=== PATIENT | female | born 1945 | race Caucasian/White ===

== ENCOUNTER 2019-01-11 17:32 | Inpatient (IN) | payer MEDICARE ==
[2019-01-11] MEDS ORDERED: Fentanyl 100 MCG/2 ML VIAL ONE (17:52)
[2019-01-11] MEDS ORDERED: Lorazepam 2 MG/ML VIAL ONE (17:56)
[2019-01-11] MEDS ORDERED: Ketorolac Tromethamine 30 MG/ML VIAL ONE (17:57)
[2019-01-11] MEDS ORDERED: Ondansetron PF 4 MG/2 ML Vial ONE (17:57)
--- NOTE | 2019-01-11 18:21 | RAD ---
EXAM: Single view of the chest HISTORY: Preoperative radiograph. Fall. COMPARISON: 12/03/2012 FINDINGS: Single view of the chest shows a normal sized cardiomediastinal silhouette. The patient is status post sternotomy. There is no evidence of consolidation, mass, or pleural effusion. The bones are unremarkable. IMPRESSION: No evidence of acute cardiopulmonary disease
--- NOTE | 2019-01-11 18:22 | RAD ---
EXAM: 2 views of the left hip HISTORY: Left hip pain after fall COMPARISON: None FINDINGS: 2 views of the left hip shows an intertrochanteric fracture of the left femur. No degenerat josemanuel changes are seen. Moderate soft tissue swelling is present. Vascular calcifications are seen. IMPRESSION: Intertrochanteric left femur fracture
--- NOTE | 2019-01-11 18:24 | RAD ---
Exam: Single view of the pelvis HISTORY: Pelvic and hip pain after fall COMPARISON: None FINDINGS: A single view the pelvis shows an intertrochanteric fracture of the left femur. No other fr actures or dislocations are seen. No degenerative changes seen in either hip. IMPRESSION: Intertrochanteric left femur fracture
[2019-01-11 18:25] LABS: #Eosinphils 0.1 thou/uL (0.0-0.7); #Lymphocytes 1.4 thou/uL (1.20-3.40); #Monocytes 0.6 thou/uL (0.11-0.59); #Neutrophils 7.4 thou/uL (1.40-6.50); %Basophils 0.4 % (0.0-1.0); %Eosinophils 1.5 % (0.0-10.0); %Lymphocytes 14.9 % (21.0-51.0); %Monocytes 5.9 % (0.0-10.0); %Neutrophils 77.3 % (42.0-75.0); Hemoglobin 11.5 g/dL (12.0-16.0); Mean Corpuscular HGB CONC 33.6 g/dL (32.0-36.0); Mean Corpuscular Hemoglobin 31.6 pg (27.0-31.0); Mean Corpuscular Volume 93.9 fL (78.0-98.0); Mean Platelet Volume 8.2 fL (7.4-10.4); Platelet Count 165 thou/uL (130-400); RBC Distribution Width 11.5 % (11.5-14.5); Red Blood Cell (RBC) Count 3.64 mill/uL (4.20-5.40); White Blood Cell (WBC) Count 9.6 thou/uL (4.8-10.8)
[2019-01-11 18:30] LABS: INR-International Normal Ratio 1.1; PTT 29.5 SEC (22.9-36.1); Prothrombin Time 14.4 SEC (12.0-14.7)
[2019-01-11 18:48] LABS: ALT (SGPT) 14 U/L (8-55); AST (SGOT) 15 U/L (5-34); Albumin 4.1 g/dL (3.4-4.8); Alkaline Phosphatase 70 U/L (40-150); Anion Gap 13 mmol/L (10-20); BUN (Urea Nitrogen) 30 mg/dL (9.8-20.1); Bilirubin, Total 0.5 mg/dL (0.2-1.2); CK (CPK) 117 U/L (29-168); Calc. Creatinine Clearance 0 mL/min (70-130); Calcium 8.6 mg/dL (7.8-10.44); Carbon Dioxide 22 mmol/L (23-31); Chloride 108 mmol/L (98-107); Estimated GFR-MDRD 33; Globulin 2.1 g/dL (2.4-3.5); Glucose 223 mg/dL (83-110); Potassium 4.2 mmol/L (3.5-5.1); Protein, Total 6.2 g/dL (6.0-8.3); Sodium 139 mmol/L (136-145)
[2019-01-11 19:02] LABS: Magnesium 1.8 mg/dL (1.6-2.6); Phosphorus 3.8 mg/dL (2.3-4.7)
[2019-01-11 19:38] LABS: Bilirubin Negative (Negative); Blood, Urine Negative (Negative); Clarity Clear (Clear); Glucose, Urine (Dipstick) 50 mg/dL (Negative); Leukocyte Negative Leu/uL (Negative); Nitrite Negative (Negative); Protein, Urine (Dipstick) 20 mg/dL (Neg-Trace); Urobilinogen Normal mg/dL (Less than 2)
[2019-01-11] MEDS ORDERED: Ondansetron PF 4 MG/2 ML Vial IVP PRN (20:46)
[2019-01-11] MEDS ORDERED: Insulin Regular 300 UNITS/3 ML VIAL SC PRN (20:46)
[2019-01-11] MEDS ORDERED: Ondansetron ODT 4 MG TAB PO PRN (20:46)
[2019-01-11] MEDS ORDERED: Dextrose 50% Abboject 50 ML SYRINGE SLOW IVP PRN (20:46)
[2019-01-11] MEDS ORDERED: Dextrose 5% in Water 1,000 ML IV PRN (20:46)
[2019-01-11] MEDS ORDERED: hydrALAZINE 20 MG/ML VIAL SLOW IVP PRN (20:56)
[2019-01-11] MEDS ORDERED: Cyclobenzaprine 10 MG TAB PO PRN (20:57)
--- NOTE | 2019-01-11 21:23 | RAD ---
EXAM: 3 views of the left wrist HISTORY: Wrist pain after fall COMPARISON: None FINDINGS: 3 views of the left wrist shows an intra-articular fracture of the distal radius and associ ated ulnar styloid fracture. Surrounding soft tissue swelling is seen. No degenerative changes are present. IMPRESSION: Distal radius and ulnar styloid fractures
[2019-01-11] MEDS ORDERED: traMADol HCl 50 MG TAB PO SCH (21:45)
[2019-01-11] MEDS ORDERED: Famotidine/PF 20 mg/2ml Vial SLOW IVP SCH (22:00)
[2019-01-11] MEDS ORDERED: Magnesium Sulfate 2 GM in Sodium Chloride 0.9% 100 ML IVPB SCH (23:45)
[2019-01-11] MEDS ORDERED: Magnesium 2 GM/50 ML 2 GM in Premix Bag 1 BAG IVPB SCH (23:59)
[2019-01-12 00:51] VITALS: BMI 21.6
[2019-01-12] MEDS: Senokot S 8.6-50 MG TAB PO SCH ×3 (00:57→20:45)
[2019-01-12] MEDS: Acetaminophen 1,000 MG in Premix Bag 1 BAG IVPB SCH ×2 (00:57→07:07)
[2019-01-12] MEDS: Gabapentin 100 MG CAP PO SCH ×4 (00:57→20:45)
[2019-01-12] MEDS: Sodium Chloride 0.9% 1,000 ML IV SCH ×2 (01:07→11:22)
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
[2019-01-12 05:36] LABS: #Eosinphils 0.1 thou/uL (0.0-0.7); #Lymphocytes 0.8 thou/uL (1.20-3.40); #Monocytes 0.5 thou/uL (0.11-0.59); #Neutrophils 5.5 thou/uL (1.40-6.50); %Basophils 0.1 % (0.0-1.0); %Eosinophils 1.3 % (0.0-10.0); %Lymphocytes 12.1 % (21.0-51.0); %Monocytes 7.1 % (0.0-10.0); %Neutrophils 79.4 % (42.0-75.0); Hemoglobin 10.4 g/dL (12.0-16.0); Mean Corpuscular HGB CONC 33.5 g/dL (32.0-36.0); Mean Corpuscular Volume 95.3 fL (78.0-98.0); Mean Platelet Volume 8.8 fL (7.4-10.4); Platelet Count 127 thou/uL (130-400); RBC Distribution Width 11.6 % (11.5-14.5); Red Blood Cell (RBC) Count 3.24 mill/uL (4.20-5.40)
[2019-01-12 05:55] LABS: Anion Gap 11 mmol/L (10-20); BUN (Urea Nitrogen) 31 mg/dL (9.8-20.1); Calc. Creatinine Clearance 33 mL/min (70-130); Calcium 8.1 mg/dL (7.8-10.44); Carbon Dioxide 20 mmol/L (23-31); Chloride 109 mmol/L (98-107); Estimated GFR-MDRD 37; Glucose 333 mg/dL (83-110); Potassium 4.8 mmol/L (3.5-5.1); Sodium 135 mmol/L (136-145)
[2019-01-12] MEDS: traMADol HCl 50 MG TAB PO SCH ×4 (06:23→23:43)
[2019-01-12] MEDS: Polyethylene Glycol 3350 17 GM Packet PO SCH (08:33)
[2019-01-12] MEDS ORDERED: Clindamycin/D5W 900 MG in Premix Bag 1 BAG IVPB SCH (08:45)
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
[2019-01-12 09:51] LABS: Hemoglobin A1c 9.2 % (4.0-6.0)
[2019-01-12] MEDS: Acetaminophen 500 MG TAB PO SCH ×3 (11:22→23:43)
[2019-01-12] MEDS ORDERED: Clindamycin/D5W 900 mg/50 ml Premix Bag ONE (11:42)
[2019-01-12] MEDS ORDERED: Fentanyl 100 MCG/2 ML VIAL ONE (12:42)
--- NOTE | 2019-01-12 16:01 | RAD ---
LEFT HIP 2 VIEWS: HISTORY: Intertrochanteric left femur fracture FINDINGS: 2 spot fluoroscopic intraoperative images of the left hip demonstrate interval reduction and internal fixation of the intertrochanteric fracture on the left greater than the previous day's exam.
[2019-01-12] MEDS ORDERED: Promethazine HCl 25 MG/ML VIAL IM PRN (16:02)
[2019-01-12] MEDS ORDERED: Ondansetron HCl/PF 4 MG/2 ML Vial IVP PRN (16:02)
[2019-01-12] MEDS ORDERED: Promethazine HCl 25 MG/ML VIAL SLOW IVP PRN (16:02)
[2019-01-12] MEDS ORDERED: HYDROmorphone 2 MG/ML VIAL SLOW IVP PRN (16:02)
[2019-01-12] MEDS ORDERED: Bupivacaine HCl 0.5%/Epinephrine 1:200,000/PF 30 ml Vial ONE (16:12)
[2019-01-12] MEDS ORDERED: Rocuronium Bromide 10 MG/ML (10ML VIAL) ONE (16:55)
[2019-01-12] MEDS ORDERED: Ondansetron PF 4 MG/2 ML Vial ONE (16:55)
[2019-01-12] MEDS ORDERED: ePHEDrine 50 MG/ML VIAL ONE (16:55)
[2019-01-12] MEDS ORDERED: PHENYLEPHRINE-NS 100 MCG/ML 10 ML SYRINGE ONE (16:55)
[2019-01-12] MEDS ORDERED: Glycopyrrolate 0.2 MG/ML 5 ML SYRINGE ONE (16:55)
[2019-01-12] MEDS ORDERED: PROPOFOL 200 MG/20 ML VIAL ONE (16:55)
[2019-01-12] MEDS ORDERED: Lidocaine 1% PF 5 ML VIAL ONE (16:55)
--- NOTE | 2019-01-12 17:48 | RAD ---
EXAM: 2 views of the left wrist HISTORY: Distal radius fracture status post ORIF COMPARISON: 01/11/2019 FINDINGS: 2 views of the left wrist shows the patient is status post ORIF of the distal radius fractu re with a plate and screws. No perihardware lucency is seen. No degenerative changes are present. IMPRESSION: Status post ORIF of left distal radius fracture without evidence of complication.
[2019-01-12] MEDS: Clindamycin/D5W 900 MG in Premix Bag 1 BAG IVPB SCH (20:43)
[2019-01-12] MEDS: Atorvastatin Calcium 20 MG TAB PO SCH (20:45)
[2019-01-12] MEDS ORDERED: Famotidine/PF 20 mg/2ml Vial SLOW IVP SCH (21:00)
[2019-01-12] MEDS: HumaLOG 300 UNITS/3 ML VIAL SC SCH (22:30)
[2019-01-13] MEDS ORDERED: Insulin Regular 300 UNITS/3 ML VIAL SC PRN (00:42)
--- NOTE | 2019-01-13 00:59 | PRG ---
DATE OF SERVICE: 01/13/2019 SUBJECTIVE: The patient remains on the surgical floor. She is status post ground level fall, which she sustained a left hip fracture. Today, she underwent open reduction and internal fixation of same. There were no reported issues with her surgery. At my time of visit, the patient was still very sleepy and reportedly had just arrived up on to the floor, not too long ago. OBJECTIVE: VITAL SIGNS: Stable. The patient is afebrile. GENERAL: The patient is resting comfortably in bed. She appears in no distress. She is sleeping. LUNGS: Clear to auscultation bilaterally. HEART: Regular rate and rhythm. ABDOMEN: Soft with active bowel sounds. EXTREMITIES: Neurovascularly intact x4. Postop dressing is clean, dry, and intact. ASSESSMENT/PLAN: 1. Status post ground level fall. 2. Left distal radius fracture, status post open reduction and internal fixation of same. 3. Left intertrochanteric femur fracture, status post open reduction and internal fixation of same. 4. Enmof-dy-kdjpivq kidney disease stage 3. 5. Hyperglycemia, history of type 1 diabetes. PLAN: Plan will be to continue supportive care. Oral pain medications. Begin physical and occupational therapy and discuss placement tomorrow. Job ID: [id number]
[2019-01-13] MEDS: Clindamycin/D5W 900 MG in Premix Bag 1 BAG IVPB SCH ×2 (03:57→12:31)
[2019-01-13] MEDS: Sodium Chloride 0.9% 1,000 ML IV SCH (04:03)
[2019-01-13] MEDS: Levothyroxine Sodium 75 MCG TAB PO SCH (05:27)
[2019-01-13] MEDS: Acetaminophen 500 MG TAB PO SCH ×3 (05:27→18:29)
[2019-01-13] MEDS: traMADol HCl 50 MG TAB PO SCH ×3 (05:28→18:29)
[2019-01-13 05:44] LABS: #Eosinphils 0.2 thou/uL (0.0-0.7); #Lymphocytes 0.8 thou/uL (1.20-3.40); #Monocytes 0.3 thou/uL (0.11-0.59); #Neutrophils 3.9 thou/uL (1.40-6.50); %Basophils 0.6 % (0.0-1.0); %Eosinophils 3.7 % (0.0-10.0); %Lymphocytes 15.3 % (21.0-51.0); %Monocytes 6.2 % (0.0-10.0); %Neutrophils 74.2 % (42.0-75.0); Hemoglobin 9.1 g/dL (12.0-16.0); Mean Corpuscular HGB CONC 32.9 g/dL (32.0-36.0); Mean Corpuscular Hemoglobin 31.6 pg (27.0-31.0); Mean Corpuscular Volume 96.1 fL (78.0-98.0); Mean Platelet Volume 8.3 fL (7.4-10.4); Platelet Count 118 thou/uL (130-400); RBC Distribution Width 11.5 % (11.5-14.5); Red Blood Cell (RBC) Count 2.86 mill/uL (4.20-5.40); White Blood Cell (WBC) Count 5.3 thou/uL (4.8-10.8)
[2019-01-13 05:53] LABS: Anion Gap 10 mmol/L (10-20); BUN (Urea Nitrogen) 23 mg/dL (9.8-20.1); Calc. Creatinine Clearance 43 mL/min (70-130); Calcium 7.8 mg/dL (7.8-10.44); Carbon Dioxide 22 mmol/L (23-31); Chloride 109 mmol/L (98-107); Estimated GFR-MDRD 50; Glucose 158 mg/dL (83-110); Magnesium 2.2 mg/dL (1.6-2.6); Potassium 4.5 mmol/L (3.5-5.1); Sodium 136 mmol/L (136-145)
[2019-01-13 06:01] LABS: Phosphorus 4.6 mg/dL (2.3-4.7)
[2019-01-13] MEDS: HumaLOG 300 UNITS/3 ML VIAL SC SCH ×2 (06:30→12:31)
--- NOTE | 2019-01-13 08:34 | PRG ---
DATE OF SERVICE: 01/12/2019 SUBJECTIVE: Ms. Berger is a 73-year-old female, status post mechanical fall. She sustained left hip fracture, left wrist fracture. She has a history of diabetes, chronic kidney disease, left eye blind from previous injury. She was taken to the OR today for internal fixation of left hip and left wrist. LABORATORY DATA: Today shows hemoglobin 10.4, white count 7.0. Sodium 135, potassium 4.8, and creatinine decreased little 1.41. Hemoglobin A1c of 9.2. OBJECTIVE: GENERAL: The patient lying down in bed, comfortable with no acute distress. Pain is well controlled. The patient is alert, awake, and oriented x3. VITAL SIGNS: Temperature 97, heart rate 77, respiratory rate 17, O2 saturation 94 on room air, and blood pressure 134/68. LUNGS: Clear bilaterally. HEART: Regular rate and rhythm. ABDOMEN: Soft, nondistended. EXTREMITIES: Neurovascularly intact x4. Left wrist is on splint with neurovascularly intact of left hand, fingers are pink, capillary refill is less than 3 seconds. No change of sensation. Left hip range of motion limited due to pain. ASSESSMENT: 1. Status post ground level fall. 2. Left wrist fracture. 3. Left hip fracture. 4. Poorly controlled diabetes. PLAN: We will change to insulin moderate sliding scale. We will put the patient on p.o. pain med. Continue DVT and gastritis prophylaxes. Continue fluid resuscitation. We will check creatinine tomorrow. Job ID: [id number]
[2019-01-13] MEDS: Polyethylene Glycol 3350 17 GM Packet PO SCH (08:45)
[2019-01-13] MEDS: Gabapentin 100 MG CAP PO SCH ×3 (08:46→20:55)
[2019-01-13] MEDS: traMADol HCl 50 MG TAB PO PRN ×2 (08:46→14:18)
[2019-01-13] MEDS: Aspirin 81 mg Enteric Coated Tablet PO SCH ×2 (08:46→20:55)
[2019-01-13] MEDS: Senokot S 8.6-50 MG TAB PO SCH ×2 (08:46→20:55)
[2019-01-13] MEDS ORDERED: HumaLOG 300 UNITS/3 ML VIAL SC PRN (09:19)
--- NOTE | 2019-01-13 11:54 | OP ---
DATE OF PROCEDURE: 01/12/2019 PREOPERATIVE DIAGNOSES: 1. Left intertrochanteric femur fracture. 2. Left comminuted distal radius fracture. POSTOPERATIVE DIAGNOSES: 1. Left intertrochanteric femur fracture. 2. Left comminuted distal radius fracture. PROCEDURES PERFORMED: 1. Open reduction and internal fixation of left intertrochanteric femur fracture with DHS system. 2. Open reduction and internal fixation of left distal radius. ANESTHESIA: General and block. DEMAND MANAGER: Elizabeth Rodriguez PA-C IMPLANTS: Synthes 135-degree 3-hole DHS sideplate and hip screw for the intertrochanteric femur fracture and Synthes 2.4 mm variable angle LCP 2-column volar plate for the distal radius. COMPLICATIONS: None. DRAINS: None. SPECIMEN: None. OUTCOME: Near-anatomic alignment of both fractures. INDICATIONS: Ms. Berger is a 73-year-old lady, who is status post ground level fall with no loss of consciousness, sustaining trauma to her left hip and left wrist. Upon evaluation in the emergency room, she was found to have a displaced fracture of the left intertrochanteric femur as well as a dorsally displaced left distal radius fracture. After discussion with the patient and family regarding risks and benefits, we decided to proceed with open reduction and internal fixation of both fractures to aid with improving mobility and hopefully speeding rehabilitation. Informed consent has been obtained, I believe all questions answered. DESCRIPTION OF PROCEDURE: The patient was brought to the operating room and a time-out performed followed by induction of general anesthesia. She was then positioned on the fracture table with the injured left lower extremity held in longitudinal traction and slight internal rotation. Next, a sterile prep and drape was performed in the left lateral thigh. An incision measuring approximately 5 inches was made distal to the greater trochanter. After skin was sharply incised, dissection was carried down to the underlying fascia asif. This was incised in-line with skin incision and reflected anteriorly and posteriorly revealing the underlying fascia of the vastus lateralis. This was incised in-line with the skin incision and then the muscle belly swept off the posterior leaflet until the lateral wall of the femur could be encountered. The muscle belly was then reflected anteriorly and held in place with a retractor. Next, a 135-degree jig with threaded guidewire was introduced into the wound with the guidewire drilled from the lateral cortex of the femur up the femoral neck into the femoral head. Once appropriately positioned, measurement of the pin determined that a 90 mm hip screw would be of appropriate length. Next, a step reamer was passed over the guidewire to further prepare the neck and head for acceptance of the hip screw. Next, the DHS plate with hip screw was introduced into the wound with hip screw delivered up into the femoral head. Once fully delivered, the plate was brought up against the lateral cortex of the femur and then, the guidewire was removed. A 4.5 mm screws were used to affix the sideplate to the proximal femur. At completion of this, there was found to be near anatomic alignment of her fracture. The wound was irrigated with normal saline and closed in layers with 0 Vicryl for the fascia asif 2-0 Vicryl subcutaneously and oneil for the skin. Xeroform gauze and tape dressing was applied to the thigh and then scrub was broken. Then, the patient was taken out of traction. The patient was then repositioned with the left arm held on an armboard and then a new sterile prep and drape was performed in the left upper extremity. The limb was then exsanguinated with Esmarch bandage, tourniquet inflated to 250 mmHg. Next, a volar radial skin incision was made. Dissection was carried down between the flexor carpi radialis and the brachioradialis, taking care to protect the neurovascular bundle and reflected radially. The pronator quadratus was reflected off the radial border of the radius and reflected towards the midline revealing the underlying fracture. The fracture was reduced under direct visualization and once reduced, checked under AP and C-arm guidance to ensure acceptable reduction. Once done, a 2.4 mm variable angle LCP 2-column plate was applied to the volar cortex of the distal radius. This was held provisionally with a cortical screw proximal to the fracture and then checked under AP and lateral C-arm images. Some minor adjustments were made to the plate and then a total of 4 locking screws were placed in the horizontal distal limb of the plate capturing the distal fragment of the fracture. Two additional cortical screws were placed proximally and then final C-arm images were obtained that showed jehovah's witness of radial inclination, volar tilt, and radial length. The wound was irrigated with normal saline, closed in layers with 2-0 Vicryl and 3-0 nylon for the skin. Tourniquet was let down at completion of dressing with total time of approximately 40 minutes. A Xeroform gauze, Webril, and fiberglass splint was applied to the arm and then, the patient was transferred to recovery room in stable condition. There were no complications. The patient tolerated the procedure well. Job ID: [id number]
--- NOTE | 2019-01-13 13:52 | PRG ---
DATE OF SERVICE: 01/13/2019 SUBJECTIVE: Ms. Berger is a 73-year-old female, status post mechanical fall. She sustained left hip fracture, left wrist fracture. She also has a history of diabetes, chronic kidney disease, left eye blindness from previous injury. She underwent ORIF of left hip fracture and left wrist fracture with Ortho yesterday. Postop, the patient is doing good. Pain is well controlled. She developed no fever or shortness of breath. Vital signs have been stable. She tolerated her regular diet. Her urine is adequate. OBJECTIVE: GENERAL: The patient is lying down in bed, comfortable with no acute distress. Pain is well controlled. The patient is alert, awake, and oriented x3. VITAL SIGNS: Today, temperature 97.4, heart rate 80, respiratory rate 20, O2 saturation 100% on 2 L, and blood pressure 123/72. LUNGS: Clear bilaterally. HEART: Regular rate and rhythm. ABDOMEN: Soft and nondistended. EXTREMITIES: Neurovascularly intact x4. Left wrist is in the splint with neurovascularly intact of left hand. Left finger pink and warm. Capillary refill less than 2 seconds. No change of sensation. Left hip range of motion limited due to pain. Postop dressing clean, clear, dry. Neurovascular intact x4. NEUROLOGY: No focal neurology deficits. LABORATORY DATA: Today, hemoglobin 9.1. Sodium 136, potassium 4.5, creatinine 1.08, and magnesium 2.2. ASSESSMENT: 1. Status post ground level fall. 2. Left hip fracture, status post open reduction and internal fixation of left hip fracture. 3. Left wrist fracture, status post open reduction and internal fixation of left wrist fracture. 4. Poorly controlled diabetes. PLAN: The patient is doing better with insulin moderate sliding scale. The patient will be continued with pain control. Continue DVT prophylaxis. viscosity worker is working for the patient's placement either skilled facility or rehabilitation facility. Continue working with PT/OT. The patient's kidney function is getting better. Discontinue fluid resuscitation today and discontinue Haynes. Patient was seen and evaluated with Dr Lemus on round this morning Job ID: [id number] MTDD
[2019-01-13] MEDS: Atorvastatin Calcium 20 MG TAB PO SCH (20:55)
[2019-01-14] MEDS: Acetaminophen 500 MG TAB PO SCH ×4 (01:11→17:52)
[2019-01-14] MEDS: traMADol HCl 50 MG TAB PO SCH ×4 (01:12→17:52)
--- NOTE | 2019-01-14 01:51 | PRG ---
DATE OF SERVICE: SUBJECTIVE: Patient remains on the surgical floor. She is status post a ground level fall where she sustained a left intertrochanteric femur fracture. The patient has undergone open reduction internal fixation of same and she tolerated this well. She has been worked with Physical and Occupational Therapy. She is tolerating her diet and her pain is controlled. OBJECTIVE: VITAL SIGNS: Stable. Patient is afebrile. GENERAL: Patient is sitting in chair beside the bed. She is awake, alert, and oriented x3. [place] Coma Scale is 15. HEENT: Unremarkable. LUNGS: Clear to auscultation with good inspiratory and expiratory effort. HEART: Regular rate and rhythm. ABDOMEN: Soft, flat, and nontender with active bowel sounds. EXTREMITIES: Neurovascularly intact x4. Postop dressing is clean, dry, and intact. ASSESSMENT: 1. Status post ground level fall. 2. Status post open reduction internal fixation of left intertrochanteric femur fracture. 3. Status post open reduction internal fixation of left wrist fracture. PLAN: Plan will be to continue supportive care and await placement decisions. Job ID: [id number]
[2019-01-14] MEDS: Levothyroxine Sodium 75 MCG TAB PO SCH (05:36)
[2019-01-14] MEDS: HumaLOG 300 UNITS/3 ML VIAL SC SCH ×2 (05:37→17:53)
[2019-01-14 06:10] LABS: #Eosinphils 0.2 thou/uL (0.0-0.7); #Lymphocytes 0.8 thou/uL (1.20-3.40); #Monocytes 0.4 thou/uL (0.11-0.59); #Neutrophils 4.3 thou/uL (1.40-6.50); %Basophils 0.2 % (0.0-1.0); %Eosinophils 3.8 % (0.0-10.0); %Lymphocytes 14.1 % (21.0-51.0); %Monocytes 7.1 % (0.0-10.0); %Neutrophils 74.8 % (42.0-75.0); Mean Corpuscular HGB CONC 33.9 g/dL (32.0-36.0); Mean Corpuscular Hemoglobin 32.3 pg (27.0-31.0); Mean Corpuscular Volume 95.3 fL (78.0-98.0); Mean Platelet Volume 7.9 fL (7.4-10.4); Platelet Count 113 thou/uL (130-400); RBC Distribution Width 11.3 % (11.5-14.5); Red Blood Cell (RBC) Count 2.78 mill/uL (4.20-5.40); White Blood Cell (WBC) Count 5.8 thou/uL (4.8-10.8)
[2019-01-14 07:49] LABS: Magnesium 2.1 mg/dL (1.6-2.6); Phosphorus 3.5 mg/dL (2.3-4.7)
[2019-01-14] MEDS: Aspirin 81 mg Enteric Coated Tablet PO SCH ×2 (08:39→20:58)
[2019-01-14] MEDS: Gabapentin 100 MG CAP PO SCH ×3 (08:39→20:58)
[2019-01-14] MEDS: Senokot S 8.6-50 MG TAB PO SCH ×2 (08:39→20:58)
[2019-01-14] MEDS: traMADol HCl 50 MG TAB PO PRN (08:39)
[2019-01-14] MEDS: Polyethylene Glycol 3350 17 GM Packet PO SCH (08:39)
[2019-01-14] MEDS: Insulin Glargine 30 UNITS in Pre-Filled Syringe 1 EACH SC SCH (10:46)
--- NOTE | 2019-01-14 15:21 | PRG ---
DATE OF SERVICE: 01/14/2019 SUBJECTIVE: The patient is currently on the surgical floor. She is status post ground level fall when she sustained a left intertrochanteric femur fracture. She has undergone open reduction and internal fixation of the same. She has been working with physical and occupational therapy. She is tolerating a diet. Her pain is controlled. She is currently awaiting insurance approval for placement in a fpc facility near home in [place]. OBJECTIVE: VITAL SIGNS: Temperature 98.7, heart rate 64, blood pressure 134/61, respirations 16, oxygen saturation is 93% on 2 L via nasal cannula. GENERAL: The patient is resting comfortably in bed. She is awake, alert, and oriented. [place] Coma Scale is 15. HEENT: Unremarkable. LUNGS: Clear to auscultation with good inspiratory and expiratory effort. HEART: Regular rate and rhythm. ABDOMEN: Soft, flat, nontender with active bowel sounds. EXTREMITIES: Neurovascularly intact x4. LABORATORY FINDINGS: White blood cell count 5.8, hemoglobin 9.0, hematocrit 26.5, platelets 113. IMAGING STUDIES: There are no radiographs reviewed this morning. ASSESSMENT AND PLAN: 1. Status post ground level fall. 2. Status post open reduction and internal fixation of left intertrochanteric femur fracture. 3. Status post open reduction and internal fixation of left wrist fracture. PLAN: Plan will be to continue supportive care. Encourage physical and occupational therapy, and await placement decision. The patient was evaluated with Dr. Lemus this morning during rounds. Job ID: [id number]
--- NOTE | 2019-01-14 16:15 | PQF ---
CLINICAL DOCUMENTATION IMPROVEMENT CLARIFICATION FORM: ICD-10 Updated PLEASE DO AN ADDENDUM TO THE PROGRESS NOTE WITH ANY DOCUMENTATION UPDATES OR ADDITIONS AND CARRY THROUGH TO DC SUMMARY. THANK YOU. DATE: 01/14/2019 ATTN: Herbetr Mace PA-C Please exercise your independent, professional judgment in responding to the clarification form. Clinical indicators are provided on the bottom of this form for your review Please check appropriate box(s): [ ] Acute Renal Failure (ARF) / Acute Kidney Injury (ALEXANDRO) [ X] Acute on Chronic Renal Failure [ ] CKD without ARF/ALEXANDRO [ ] Other diagnosis [ ] Unable to determine In addition, please specify: Present on Admission (POA): [ X] Yes [ ] No [ ] Unable to determine For continuity of documentation, please document condition throughout progress notes and discharge summary. Thank You. CLINICAL INDICATORS - SIGNS / SYMPTOMS / LABS H&P 01/11: creatinine 1.53 estimated GFR 33 Acute on chronic kidney disease stage 3 PN 01/13: [id number] kidney disease stage 3 LAB 01/13: Creatinine 1.08 Estimated GFR 50 RISKS: PN 01/12: 73 yo s/p mechanical fall. She sustained left hip fx, l wrist fx. She has history of diabetes, chronic kidney disease. TREATMENT: MAR 01/11-01/13: NS IV 75 mls/hr Lab order 01/11: CMP Lab order for BMP on 01/12, 01/13 National [employer] Guidelines for CKD Staging Stage I Kidney damage with normal or increased GFR GFR > 90 Stage II Kidney damage with mildly decreased GFR GFR 60-89 Stage III Kidney damage with moderately decreased GFR GFR 30-59 Stage IV Kidney damage with severely decreased GFR GFR 16-29 Stage V Kidney failure GFR<15 ESRD End Stage Renal Disease On dialysis Acute Renal Failure/Acute Kidney Failure defined as: Increases in SCr by (>) 0.3 mg/dl within 48 hours OR- Increases in SCr by (>) 1.5 times baseline, known or presumed to have occurred within the prior 7 days OR- Urine volume < 0.5 ml/kg/hour for 6 hours (KDIGO supplement 2012 for RIFLE/MIN criteria) Thank you, Maite (This form is maintained as a part of the permanent medical record) 2014 [employer] All Rights Reserved Maite Sams RN, BSN [email or web address] Office: [phone] [facility] MEDICAL CENTERAshlyn
[2019-01-14] MEDS: Atorvastatin Calcium 20 MG TAB PO SCH (20:58)
[2019-01-15] MEDS: Acetaminophen 500 MG TAB PO SCH ×3 (00:35→12:03)
[2019-01-15] MEDS: traMADol HCl 50 MG TAB PO SCH ×3 (00:36→12:04)
[2019-01-15] MEDS: Levothyroxine Sodium 75 MCG TAB PO SCH (05:54)
[2019-01-15] MEDS: Aspirin 81 mg Enteric Coated Tablet PO SCH (09:36)
[2019-01-15] MEDS: Senokot S 8.6-50 MG TAB PO SCH (09:37)
[2019-01-15] MEDS: Gabapentin 100 MG CAP PO SCH (09:37)
[2019-01-15] MEDS: Polyethylene Glycol 3350 17 GM Packet PO SCH (09:37)
[2019-01-15] MEDS: Insulin Glargine 30 UNITS in Pre-Filled Syringe 1 EACH SC SCH (09:38)
[2019-01-15] MEDS: HumaLOG 300 UNITS/3 ML VIAL SC SCH (12:03)
[2019-01-15 12:18] VITALS: BP 128/70; TEMP 98.1
--- NOTE | 2019-01-16 03:08 | DIS ---
DATE OF ADMISSION: 01/11/2019 DATE OF DISCHARGE: 01/15/2019 ADMISSION DIAGNOSES: 1. Status post ground level fall. 2. Left wrist fracture. 3. Left hip fracture. 4. Diabetes. 5. Acute kidney injury. DISCHARGE DIAGNOSES: 1. Status post ground level fall. 2. Left wrist fracture status post ORIF, left wrist fracture. 3. Left hip fracture status post ORIF, left hip fracture. 4. Diabetes. 5. Acute kidney injury, resolved. CONSULTING PHYSICIAN: Felix Akers MD, Orthopedic. PROCEDURES PERFORMED: 1. Open reduction and internal fixation of left intertrochanteric femur fracture with DHS system. 2. Open reduction and internal fixation of left distal radius. HOSPITAL COURSE: Ms. Berger is a 73-year-old female, status post mechanical fall. She sustained left hip fracture, left wrist fracture. She has a history of diabetes. She also developed acute kidney injury. She was taken to the OR for internal fixation of left hip and left wrist. Postop, the patient has been doing good. Pain is well controlled. She developed no fever or shortness of breath. Vital signs have been stable. She tolerated with regular diet. She is able to work with PT/OT. Her acute kidney injury resolved with fluid resuscitation. PHYSICAL EXAMINATION: GENERAL: The patient is lying down in bed, comfortable with no acute distress. Pain is well controlled. The patient is alert, awake, and oriented x3. VITAL SIGNS: Temperature 98.1, heart rate 61, respiratory rate 18, O2 saturation 99% on room air, and blood pressure 128/70. LUNGS: Clear bilaterally. HEART: Regular rate and rhythm. ABDOMEN: Soft, nondistended. EXTREMITIES: Neurovascularly intact x4. Left hip dressing clean, dry, and intact. Left wrist splint and dressing, dry, clean, intact. NEUROLOGIC: No focal neurology deficits. DISCHARGE DISPOSITION: nursing home facility. DISCHARGE CONDITION: Satisfactory. DISCHARGE INSTRUCTIONS: The patient is to take medication as directed. The patient is to continue working with PT/OT. The patient is to follow up with Dr. Akers in 10 days. DISCHARGE MEDICATIONS: 1. Tylenol. 2. Aspirin. 3. Atorvastatin. 4. Flexeril. 5. Gabapentin. 6. Hydralazine. 7. DuoNeb. 8. Insulin. 9. Levothyroxine. 10. Metoprolol. 11. Pantoprazole. 12. MiraLAX. 13. Senokot. 14. Sertraline. 15. Tramadol. Job ID: [id number]
--- NOTE | 2019-01-16 12:00 | EKG ---
Test Reason : Blood Pressure : / mmHG Vent. Rate : 115 BPM Atrial Rate : 115 BPM P-R Int : 200 ms QRS Dur : 084 ms QT Int : 312 ms P-R-T Axes : 063 057 210 degrees QTc Int : 431 ms Sinus tachycardia Abnormal ECG Confirmed by GERARDO BENNETT, KELLE ([id number]), non linear editor OMAR MCMANUS ([id number]) on 01/16/2019 11:59:55 AM Referred By: Confirmed By:KELLE CARRILLO MD
== END 2019-01-15 15:00 | DRG 480 ==
LOC: ERS 17:32 → ERHOLD 18:27 → T4-B 23:39 → SURG A 01-12 15:28 → SURG B 01-12 16:52
PROVIDERS: ADMIT Surgery; ATTEND Surgery
PROC: 0QS704Z Reposition Left Upper Femur with Internal Fixation Device, Open Approach (ICD-10-PCS; principal; 2019-01-11)
PROC: 0PSJ04Z Reposition Left Radius with Internal Fixation Device, Open Approach (ICD-10-PCS; 2019-01-11)
DX: S52.572A Other intraarticular fracture of lower end of left radius, initial encounter for closed fracture (principal); S72.142A Displaced intertrochanteric fracture of left femur, initial encounter for closed fracture; N17.9 Acute kidney failure, unspecified; W01.0XXA Fall on same level from slipping, tripping and stumbling without subsequent striking against object, initial encounter; E78.5 Hyperlipidemia, unspecified; E78.00 Pure hypercholesterolemia, unspecified; F41.9 Anxiety disorder, unspecified; F32.9 Major depressive disorder, single episode, unspecified; I25.10 Atherosclerotic heart disease of native coronary artery without angina pectoris; H54.61 Unqualified visual loss, right eye, normal vision left eye; E10.22 Type 1 diabetes mellitus with diabetic chronic kidney disease; I12.9 Hypertensive chronic kidney disease with stage 1 through stage 4 chronic kidney disease, or unspecified chronic kidney disease; N18.3 Chronic kidney disease, stage 3 (moderate); E10.65 Type 1 diabetes mellitus with hyperglycemia; E10.42 Type 1 diabetes mellitus with diabetic polyneuropathy; S52.612A Displaced fracture of left ulna styloid process, initial encounter for closed fracture; Z89.429 Acquired absence of other toe(s), unspecified side; Z79.4 Long term (current) use of insulin; Z95.1 Presence of aortocoronary bypass graft; Z88.0 Allergy status to penicillin; Z88.2 Allergy status to sulfonamides; Z90.710 Acquired absence of both cervix and uterus; Z95.2 Presence of prosthetic heart valve; Z88.8 Allergy status to other drugs, medicaments and biological substances; Z79.899 Other long term (current) drug therapy; Z79.82 Long term (current) use of aspirin; Z88.5 Allergy status to narcotic agent; Y92.009 Unspecified place in unspecified non-institutional (private) residence as the place of occurrence of the external cause; S05.91XS Unspecified injury of right eye and orbit, sequela
CPT/HCPCS: 25605; 36415; 36416; 51702; 71045; 72170; 76000; 80048; 80053; 81003; 82550; 83036; 83735; 83880; 84100; 85025; 85610; 85730; 86850; 86900; 86901; 93005; 96361; 96374; 96375; C1713; C1769; J0131; J0670; J1815; J1885; J2001; J2060; J2405; J2704; J3010; J3475; J3490; S0028

== ENCOUNTER 2020-10-04 18:53 | Observation (INO) | payer MEDICARE ==
[2020-10-04 20:18] LABS: Bilirubin Small (Negative); Blood, Urine Trace (Negative); Glucose, Urine (Dipstick) Negative (Negative); Ketone, Urine Trace mg/dL (Negative); Leukocyte Large (Negative); Nitrite Negative (Negative); Protein, Urine (Dipstick) Trace mg/dL (Neg-Trace); Specific Gravity, Urine 1.025 (1.005-1.030); WBC/HPF Greater than 50 HPF (0-3)
[2020-10-04 20:19] LABS: Clarity Clear (Clear)
[2020-10-04 20:20] LABS: Bacteria/HPF 1+ HPF (None Seen)
[2020-10-04 20:27] LABS: #Eosinphils 0.1 thou/uL (0.0-0.7); #Lymphocytes 1.7 thou/uL (1.20-3.40); #Monocytes 0.8 thou/uL (0.11-0.59); #Neutrophils 8.3 thou/uL (1.40-6.50); %Basophils 0.2 % (0.0-1.0); %Eosinophils 0.6 % (0.0-10.0); %Lymphocytes 15.4 % (21.0-51.0); %Monocytes 7.5 % (0.0-10.0); %Neutrophils 76.4 % (42.0-75.0); Hemoglobin 12.6 g/dL (12.0-16.0); Mean Corpuscular HGB CONC 33.8 g/dL (32.0-36.0); Mean Corpuscular Hemoglobin 31.6 pg (27.0-31.0); Mean Corpuscular Volume 93.5 fL (78.0-98.0); Mean Platelet Volume 8.2 fL (7.4-10.4); Platelet Count 173 thou/uL (130-400); RBC Distribution Width 11.5 % (11.5-14.5); Red Blood Cell (RBC) Count 3.97 mill/uL (4.20-5.40); White Blood Cell (WBC) Count 10.8 thou/uL (4.8-10.8)
[2020-10-05] MEDS ORDERED: Vancomycin 1 GM/200 ML BAG ONE (00:04)
[2020-10-05 00:08] LABS: ALT (SGPT) 8 U/L (8-55); AST (SGOT) 15 U/L (5-34); Albumin 4.5 g/dL (3.4-4.8); Alkaline Phosphatase 104 U/L (40-110); Anion Gap 15 mmol/L (10-20); BUN (Urea Nitrogen) 27 mg/dL (9.8-20.1); Bilirubin, Total 0.5 mg/dL (0.2-1.2); Calc. Creatinine Clearance 0 mL/min (70-130); Calcium 9.9 mg/dL (7.8-10.44); Carbon Dioxide 24 mmol/L (23-31); Chloride 102 mmol/L (98-107); Globulin 3.3 g/dL (2.4-3.5); Potassium 3.5 mmol/L (3.5-5.1); Protein, Total 7.8 g/dL (5.8-8.1); Sodium 137 mmol/L (136-145)
[2020-10-05 00:10] LABS: Glucose 53 mg/dL (83-110)
[2020-10-05] MEDS ORDERED: Ondansetron ODT 4 MG TAB PO PRN (02:45)
[2020-10-05] MEDS ORDERED: Ondansetron PF 4 MG/2 ML Vial IVP PRN (02:45)
[2020-10-05] MEDS ORDERED: Acetaminophen 325 MG TAB PO PRN (02:45)
[2020-10-05] MEDS ORDERED: Dextrose 50% Abboject 50 ML SYRINGE SLOW IVP PRN (02:54)
[2020-10-05] MEDS ORDERED: HumaLOG 300 UNITS/3 ML VIAL SC PRN (02:54)
[2020-10-05] MEDS ORDERED: Dextrose 5% in Water 1,000 ML IV PRN (02:54)
[2020-10-05] MEDS ORDERED: Vancomycin 1 GM in Premix Bag 1 BAG IVPB SCH (03:00)
[2020-10-05 03:02] VITALS: BMI 20.9
[2020-10-05 05:45] LABS: SARS-CoV-2 NAA Rapid Test Not Detected (NotDetected)
[2020-10-05] MEDS: HumaLOG 300 UNITS/3 ML VIAL SC PRN ×3 (06:40→17:18)
[2020-10-05] MEDS ORDERED: Lantus 1000 UNITS/10 ML VIAL SC SCH (09:00)
[2020-10-05] MEDS ORDERED: Aspirin 81 mg Enteric Coated Tablet PO SCH (09:00)
[2020-10-05 17:04] VITALS: BP 155/73; TEMP 97.8
[2020-10-05] MEDS ORDERED: Atorvastatin Calcium 20 MG TAB PO SCH (21:00)
[2020-10-05] MEDS ORDERED: Vancomycin HCl 750 MG in Sodium Chloride 0.9% 250 ML 250 ML IVPB SCH (23:59)
[2020-10-06] MEDS ORDERED: Levothyroxine Sodium 75 MCG TAB PO SCH (06:00)
== END 2020-10-05 18:05 | disposition home or self-care (01) ==
LOC: ERS 18:53 → T4-B 10-05 00:34
PROVIDERS: ADMIT Student in an Organized Health Care Education/Training Program; ATTEND Internal Medicine
DX: L03.115 Cellulitis of right lower limb (principal); I12.9 Hypertensive chronic kidney disease with stage 1 through stage 4 chronic kidney disease, or unspecified chronic kidney disease; E11.22 Type 2 diabetes mellitus with diabetic chronic kidney disease; E11.649 Type 2 diabetes mellitus with hypoglycemia without coma; N18.32 Chronic kidney disease, stage 3b; I25.810 Atherosclerosis of coronary artery bypass graft(s) without angina pectoris; N39.0 Urinary tract infection, site not specified; E78.5 Hyperlipidemia, unspecified; E03.9 Hypothyroidism, unspecified; Z79.4 Long term (current) use of insulin; Z79.899 Other long term (current) drug therapy; Z88.0 Allergy status to penicillin; Z88.1 Allergy status to other antibiotic agents; Z88.2 Allergy status to sulfonamides; Z88.5 Allergy status to narcotic agent; Z89.411 Acquired absence of right great toe; Z95.1 Presence of aortocoronary bypass graft; Z95.2 Presence of prosthetic heart valve; Z20.822 Contact with and (suspected) exposure to COVID-19
CPT/HCPCS: 73630; 80053; 82962; 83605; 85025; 85652; 86140; 87040; 87086; 97116; 97139 ×2; U0002; U0005; 36415; 36416; 81003; 81015; 96365; 96375; G0378; J1815; J1956; J3370